=== PATIENT | female | born 1950 | race Caucasian/White ===

== ENCOUNTER 2018-04-09 06:57 | Day surgery (SDC) | payer OTHER, SELFPAY ==
[2018-04-09 07:29] VITALS: BP 115/76; PULSE 70; RESP 16; TEMP 36.4; O2SAT 100; BMI 19.1
[2018-04-09] MEDS: PROPARACAINE 0.5% OPHTH SOL 2 DROPS EYE-OP (07:38)
[2018-04-09] MEDS: CATARACT EYE COMPOUND (10 DROPS/SYRINGE) 3 DROPS EYE-OP (07:39)
--- NOTE | 2018-04-09 08:09 | PM.PREOP ---
Pre-operative Note Interval Note History & Physical reviewed/Exam performed by Physician: No Changes to H&P: No
--- NOTE | 2018-04-09 08:10 | PM.OP.1 ---
Operative Date/Time/Diagnoses Pre-op diagnosis: Nuclear cataract right eye Procedure & Clinicians Procedure: Cataract Surgery Same procedure as scheduled: Yes Surgeon: Tolu Hall Anesthesia Type: MAC +/- and Sedation Operative Notes Procedure in detail: Patient brought to the operating suite. Tetracaine drops placed in the right eye. Patient was prepped and draped in sterile manner. Wire lid speculum was placed in the eye. Betadine drops were placed on the eye. This was irrigated. Lidocaine jelly was placed on the eye. A paracentesis port was created with a side-port blade. 0.1 mL 1% preservative free lidocaine was injected into the anterior chamber. The anterior chamber was deepened with viscoelastic. 2.6 mm keratome was used to create a temporal clear corneal incision. Cystotome and Utrata forceps were used to create continuous tear capsulorrhexis. Balanced salt solution was used to hydro dissect the nucleus. The phacoemulsification handpiece was inserted and the nucleus was removed using the stop and chop technique. The irrigation aspiration handpiece was inserted and the remaining cortex was removed. Anterior chamber was deepened with viscoelastic. An Santillan ZCB00 intraocular lens with a power of 20.5 was injected into the capsular bag. Irrigation aspiration handpiece was inserted and the remaining viscoelastic was removed. Incision was hydrated with balanced salt solution and found to be leak free with pressure with Weck-Kylah sponges. 0.1 mL Vigamox injected anterior chamber. 0.3 mL Kenalog 10 mg was injected subconjunctivally. Lid speculum was removed. The patient left the operating room in excellent condition. Complications: none Condition: stable Disposition: same day surgery
[2018-04-09] MEDS: PHENYLEPHRINE/LIDOCAINE VIAL (OR) 0.2 ML EYE-OP (08:23)
[2018-04-09] MEDS: MOXIFLOXACIN OPHTH DROPS 3 ML BOTTLE 2 DROPS INJ (08:23)
[2018-04-09] MEDS: CHONDROIDTIN/SOD HYALURONATE 1.05 ML SYRINGE INTRAOCULA (08:24)
[2018-04-09] MEDS: TRIAMCINOLONE 50 MG/5 ML VIAL INJ (08:24)
[2018-04-09] MEDS: LIDOCAINE JELLY 2% 5 ML 1 APPLIC TOP (08:24)
[2018-04-09] MEDS: BALANCED SALT IRRIG SOLN NO.2 500 ML, EPINEPHrine 1 MG IRR (08:25)
[2018-04-09] MEDS: TETRACAINE 0.5% OPHTH DROPS 4 ML 2 DROPS EYE-OP (08:25)
[2018-04-09 08:40] VITALS: BP 119/70; PULSE 66; RESP 14; TEMP 36.2; O2SAT 97
== END 2018-04-09 08:46 ==
LOC: OR 06:58
PROVIDERS: PCP Internal Medicine; Visit Provider Ophthalmology
DX: H25.11 Age-related nuclear cataract, right eye (principal)
CPT/HCPCS: J0171; J2250; J3301

== ENCOUNTER → 2018-05-27 13:58 | Outpatient (CLI) | payer OTHER, SELFPAY ==
--- NOTE | 2018-05-27 | DI.MG.S_ITS ---
BILATERAL DIGITAL SCREENING MAMMOGRAM 3D/2D WITH CAD: 05/27/2018 CLINICAL: Routine screening. Family history of breast cancer. Comparison is made to exams dated: 05/15/2017 mammogram, 05/12/2016 mammogram, and 04/28/2015 mammogram - [facility]. The tissue of both breasts is heterogeneously dense. This may lower the sensitivity of mammography. Current study was also evaluated with a Computer Aided Detection (CAD) system. No significant masses, calcifications, or other findings are seen in either breast. There has been no significant interval change. IMPRESSION: NEGATIVE There is no mammographic evidence of malignancy. A 1 year screening mammogram is recommended. This exam was interpreted at Station ID: [id number]. NOTE: For mammograms, a report in lay terms will be sent to the patient. Approximately 15% of breast malignancies will not be visualized mammographically. In the management of a palpable breast mass, a negative mammogram must not discourage biopsy of a clinically suspicious lesion. Electronically Signed By: Nikki santos/lorene:05/27/2018 14:47:03 letter sent: Normal Exam ACR BI-RADS Category 1: Negative 3341F
== END ==
PROVIDERS: PCP Internal Medicine; Visit Provider Internal Medicine
DX: Z12.31 Encounter for screening mammogram for malignant neoplasm of breast (principal); Z80.3 Family history of malignant neoplasm of breast
CPT/HCPCS: 77063; 77067

== ENCOUNTER 2018-07-17 07:28 | Day surgery (SDC) | payer OTHER, SELFPAY ==
--- NOTE | 2018-07-17 | PATH_ITS ---
[facility] Accession Number: [id number] . 01 Material submitted: . cecum - CECAL POLYP BIOPSY . 02 Diagnosis: Cecum, Polyp, Biopsy: Tubular adenoma. V/07/18/2018 . 02 Electronically signed: . Ana Doan MD, Pathologist NPI- [id number] . 01 Gross description: . CECAL POLYP BIOPSY: Received in formalin is 1 fragment(s) of walter, soft tissue measuring 0.3 x 0.2 x 0.2 cm which is entirely submitted and submitted entirely in 1 cassette(s) /DMC /DMC . 02 Pathologist provided ICD-10: D12.0 . 02 CPT . 099515 Performed at: 01 [facility] [address] [id number] MD Rufino Gardiner MD Phone: [phone] Performed at: 02 [facility] [address] [place], [place] [id number] MD Ana Doan MD Phone: [phone]
[2018-07-17 07:56] VITALS: BP 121/77; PULSE 77; RESP 16; TEMP 36.4; O2SAT 100
[2018-07-17] MEDS: SODIUM CHLORIDE 0.9% 1,000 ML 42 ML IV (07:56)
--- NOTE | 2018-07-17 08:37 | PM.HP.1 ---
History of Present Illness Date Patient Seen: 07/17/18 Time Patient Seen: 08:37 Chief complaint: [id number] COLONOSCOPY Narrative: Personal history of colon polyps and family history of colon cancer in both her mother and father Patient History Medical History (Updated 07/17/18 @ 08:37 by Reece Hall MD) History of colon polyps (Acute) Hypercholesterolemia (Acute) Osteopenia (Acute) Social History household members: spouse Family & Social History Social History: household members spouse Meds Home Medications Medication Instructions Recorded Confirmed Type simvastatin 40 mg PO QPM 04/09/18 07/17/18 History calcium carbonate-vitamin D3 2 tab PO DAILY 07/17/18 07/17/18 History [Calcium 600 + D(3)] cholecalciferol (vitamin D3) 1,000 unit PO DAILY 07/17/18 07/17/18 History [Vitamin D3] magnesium hydroxide [Milk of 5 ml PO SEEINSTR PRN 07/17/18 07/17/18 History Magnesia] zoledronic [id number]-oexuz 07/17/18 History [Reclast] Allergies Allergy/AdvReac Type Severity Reaction Status Date / Time procaine [From NOVOCAIN] AdvReac Mild RACING Verified 07/17/18 07:49 HEART Exam Vital Signs (past 8 hours): - 07/17/18 07:56 Temperature 97.5 F L Pulse Rate 77 Respiratory Rate 16 Blood Pressure 121/77 Pulse Oximetry 100 Oxygen Delivery Method Room Air Narrative Exam Narrative: Oropharynx free of lesions Chest clear to auscultation percussion Cardiac exam reveals no S3 or murmur Assessment & Plan Assessment & Plan narrative: Family history of colon cancer and personal history of colon polyps need for follow-up colonoscopy. Risks, benefits, alternatives have been explained.
--- NOTE | 2018-07-17 09:04 | PM.OP.ENDO ---
Operative Date/Time/Diagnoses Date of procedure: 07/17/18 Time of procedure: 09:04 Pre-op diagnosis: See indication and findings Procedure & Clinicians Study performed: Colonoscopy Same procedure as scheduled: Yes Indications: Family history of colon cancer in both mother and father Surgeon: Reece Hall Procedure Notes Procedure in detail: After informed consent was obtained the patient was placed in left lateral decubitus position. The video colonoscope was introduced the rectum and slowly advanced to the cecum. On slow withdrawal mucosa was carefully examined. Scope was removed. The patient tolerated procedure well. Blood loss none Complications none Sedation Total sedation time 22 minutes Fentanyl 100 mg Versed 5 mg IV titration Findings 1. 3 mm cecal polyp at the appendiceal orifice Jumbo biopsy removed completely 2. Scattered horner colonic diverticulosis, mild 3. Otherwise negative colonoscopy to cecum We will be in touch regarding the biopsy results but she will need follow-up colonoscopy in 5 years.
[2018-07-17] MEDS: MIDAZOLAM 5 MG/5 ML VIAL IV (09:11)
[2018-07-17] MEDS: fentaNYL 250 MCG/5 ML INJ IV (09:11)
[2018-07-17 09:33] VITALS: BP 90/61; PULSE 68; RESP 13; TEMP 36.3; O2SAT 97
[2018-07-17 09:38] VITALS: BP 98/61; PULSE 75; RESP 15; O2SAT 97
[2018-07-17 09:43] VITALS: BP 103/67; PULSE 68; RESP 15; TEMP 36.4; O2SAT 95
[2018-07-17 09:48] VITALS: BP 105/66; PULSE 64; RESP 16; TEMP 36.4; O2SAT 96
[2018-07-17 09:58] VITALS: BP 103/68; PULSE 66; RESP 14; TEMP 36.4; O2SAT 100
== END 2018-07-17 10:03 ==
PROVIDERS: PCP Internal Medicine; Visit Provider Internal Medicine Gastroenterology
PROC: 0DJD8ZZ Inspection of Lower Intestinal Tract, Via Natural or Artificial Opening Endoscopic (ICD-10-PCS; CPT 45378; principal; 2018-07-17 09:00)
DX: Z86.010 Personal history of colon polyps (principal); Z80.0 Family history of malignant neoplasm of digestive organs; K57.30 Diverticulosis of large intestine without perforation or abscess without bleeding; D12.0 Benign neoplasm of cecum
CPT/HCPCS: 45380; J2250; J3010

== ENCOUNTER → 2018-11-27 14:50 | Outpatient (ROUT) | payer OTHER, SELFPAY ==
[2018-11-27 15:41] LABS: Aspartate Aminotransferase 26 IU/L (14-36); Cholesterol 241 mg/dL (140-199); Glucose 96 mg/dL (80-110); HDL Cholesterol 74 mg/dL (40-60); LDL Cholesterol Calculated 147 mg/dL (<100); Triglycerides 100 mg/dL (35-150)
== END ==
PROVIDERS: PCP Internal Medicine; Visit Provider Internal Medicine
DX: E78.2 Mixed hyperlipidemia (principal)
CPT/HCPCS: 80061; 82947; 84450

== ENCOUNTER → 2019-09-24 11:07 | Outpatient (CLI) | payer OTHER, SELFPAY ==
--- NOTE | 2019-09-24 | DI.MG.S_ITS ---
BILATERAL DIGITAL SCREENING MAMMOGRAM 3D/2D WITH CAD: 09/24/2019 CLINICAL: Routine screening. Family history of breast cancer. Comparison is made to exams dated: 05/27/2018 mammogram, 05/15/2017 mammogram, and 05/12/2016 mammogram - [facility]. The tissue of both breasts is heterogeneously dense. This may lower the sensitivity of mammography. Current study was also evaluated with a Computer Aided Detection (CAD) system. No significant masses, calcifications, or other findings are seen in either breast. There has been no significant interval change. IMPRESSION: NEGATIVE There is no mammographic evidence of malignancy. A 1 year screening mammogram is recommended. This exam was interpreted at Station ID: [id number]. NOTE: For mammograms, a report in lay terms will be sent to the patient. Approximately 15% of breast malignancies will not be visualized mammographically. In the management of a palpable breast mass, a negative mammogram must not discourage biopsy of a clinically suspicious lesion. Electronically Signed By: Nikki santos/lorene:09/24/2019 11:52:47 letter sent: Normal Exam ACR BI-RADS Category 1: Negative 3341F
== END ==
PROVIDERS: PCP Internal Medicine; Referring Provider Internal Medicine; Visit Provider Internal Medicine
DX: Z12.31 Encounter for screening mammogram for malignant neoplasm of breast (principal); Z80.3 Family history of malignant neoplasm of breast
CPT/HCPCS: 77063; 77067

== ENCOUNTER → 2019-11-12 13:59 | Outpatient (CLI) | payer OTHER, SELFPAY | PROVIDERS: PCP Internal Medicine; Referring Provider Dermatology MOHS-Micrographic Surgery; Visit Provider Family Medicine | DX: S81.802A Unspecified open wound, left lower leg, initial encounter (principal); R60.0 Localized edema | CPT/HCPCS: 11042; 93922; 99203; 99213 ==

== ENCOUNTER → 2019-11-14 12:31 | Outpatient (CLI) | payer OTHER, SELFPAY | PROVIDERS: PCP Internal Medicine; Referring Provider Internal Medicine; Visit Provider Family Medicine | DX: T81.31XA Disruption of external operation (surgical) wound, not elsewhere classified, initial encounter (principal); S81.802A Unspecified open wound, left lower leg, initial encounter | CPT/HCPCS: 29581 ==

== ENCOUNTER → 2019-11-19 11:56 | Outpatient (CLI) | payer OTHER, SELFPAY | PROVIDERS: PCP Internal Medicine; Referring Provider Internal Medicine; Visit Provider Family Medicine | DX: S81.802A Unspecified open wound, left lower leg, initial encounter (principal); R60.0 Localized edema; L08.9 Local infection of the skin and subcutaneous tissue, unspecified | CPT/HCPCS: 11042; 87070; 87075; 87077; 87147; 87186; 87205; 99214 ==

== ENCOUNTER → 2019-11-26 11:24 | Outpatient (CLI) | payer OTHER, SELFPAY | PROVIDERS: PCP Internal Medicine; Referring Provider Internal Medicine; Visit Provider Family Medicine | DX: T81.31XA Disruption of external operation (surgical) wound, not elsewhere classified, initial encounter (principal); S81.802A Unspecified open wound, left lower leg, initial encounter | CPT/HCPCS: 29581 ==

== ENCOUNTER → 2019-12-03 11:18 | Outpatient (CLI) | payer OTHER, SELFPAY | PROVIDERS: PCP Internal Medicine; Referring Provider Internal Medicine; Visit Provider Family Medicine | DX: S81.802A Unspecified open wound, left lower leg, initial encounter (principal); R60.0 Localized edema | CPT/HCPCS: 11042 ==

== ENCOUNTER → 2019-12-04 15:31 | Outpatient (ROUT) | payer OTHER, SELFPAY ==
[2019-12-04 16:14] LABS: Aspartate Aminotransferase 23 IU/L (14-36); BUN Creatinine Ratio 24.6 (6-22); Blood Urea Nitrogen 16 mg/dL (7-17); Calcium 9.5 mg/dL (8.4-10.2); Carbon Dioxide 30 mmol/L (22-32); Chloride 101 mmol/L (98-107); Cholesterol 264 mg/dL (140-199); Estimated Glomerular Filt Rate > 60.0 mL/min (>60); Glucose 114 mg/dL (80-110); HDL Cholesterol 61 mg/dL (40-60); HEMOLYSIS < 15 (0-50); LDL Cholesterol Calculated 168 mg/dL (<100); Potassium 4.5 mmol/L (3.4-5.1); Sodium 136 mmol/L (137-145); Triglycerides 177 mg/dL (35-150)
== END ==
PROVIDERS: PCP Internal Medicine; Visit Provider Internal Medicine
DX: M85.80 Other specified disorders of bone density and structure, unspecified site (principal); E78.2 Mixed hyperlipidemia
CPT/HCPCS: 80048; 80061; 84450

== ENCOUNTER → 2019-12-10 10:54 | Outpatient (CLI) | payer OTHER, SELFPAY | PROVIDERS: PCP Internal Medicine; Referring Provider Internal Medicine; Visit Provider Family Medicine | DX: S81.802A Unspecified open wound, left lower leg, initial encounter (principal); R60.0 Localized edema | CPT/HCPCS: 29581; 99212 ==

== ENCOUNTER → 2019-12-17 10:17 | Outpatient (CLI) | payer OTHER, SELFPAY | PROVIDERS: PCP Internal Medicine; Referring Provider Internal Medicine; Visit Provider Family Medicine | DX: S81.802A Unspecified open wound, left lower leg, initial encounter (principal); R60.0 Localized edema | CPT/HCPCS: 99213 ==

== ENCOUNTER → 2019-12-24 18:58 | Outpatient (ROUT) | payer OTHER, SELFPAY ==
[2019-12-24 19:05] LABS: Add Manual Diff / Slide Review NO; Basophils Absolute Auto 0 /uL (0-100); Basophils Percent Auto 0.4 % (0-2); Eosinophils Absolute Auto 0 /uL (0-450); Eosinophils Percent Auto 0.5 % (2-4); Hematocrit 42.7 % (36-46); Hemoglobin 14.5 g/dL (12.0-16.0); Lymphocytes Absolute Auto 1400 /uL (1100-4500); Lymphocytes Percent Auto 18.1 % (25-40); Mean Corpuscular HGB Conc 33.9 % (30-36); Mean Corpuscular Hemoglobin 33.2 PG (26-34); Mean Corpuscular Volume 98.1 fL (80-100); Monocytes Absolute Auto 500 /uL (0-900); Monocytes Percent Auto 6.6 % (3-14); Neutrophils Absolute Auto 5600 /uL (1500-7000); Neutrophils Percent Auto 74.4 % (50-75); Platelet Count 206 X10^3/uL (150-400); Red Blood Cell Count 4.35 X10^6/uL (4.0-5.2); Red Cell Distribution Width 12.7 % (11.6-14.8); White Blood Cell Count 7.6 X10^3/uL (4.5-11.0)
[2019-12-24 19:12] LABS: Alanine Aminotransferase 16 IU/L (<35); Albumin 4.6 g/dL (3.5-5.0); Albumin Globulin Ratio 1.5 (1.0-2.8); Alkaline Phosphatase 48 U/L (38-126); Aspartate Aminotransferase 28 IU/L (14-36); BUN Creatinine Ratio 26.7 (6-22); Bilirubin Total 0.6 mg/dL (0.2-1.3); Blood Urea Nitrogen 16 mg/dL (7-17); Calcium 9.7 mg/dL (8.4-10.2); Carbon Dioxide 26 mmol/L (22-32); Chloride 100 mmol/L (98-107); Estimated Glomerular Filt Rate > 60.0 mL/min (>60); Globulin 3.1 g/dL (1.7-4.1); Glucose 102 mg/dL (80-110); HEMOLYSIS 29 (0-50); Magnesium 2.3 mg/dL (1.6-2.3); Potassium 4.3 mmol/L (3.4-5.1); Sodium 136 mmol/L (137-145); Total Protein 7.7 g/dL (6.3-8.2)
[2019-12-24 19:40] LABS: TSH w/ Reflex to FT4 2.51 uIU/mL (0.47-4.68)
== END ==
PROVIDERS: PCP Internal Medicine; Visit Provider Physician Assistant
DX: E00.2 Congenital iodine-deficiency syndrome, mixed type (principal); R42 Dizziness and giddiness; R55 Syncope and collapse
CPT/HCPCS: 80053; 83735; 84443; 85025

== ENCOUNTER → 2020-03-09 07:56 | Outpatient (CLI) | payer OTHER, SELFPAY ==
--- NOTE | 2020-03-09 | DI.ECHO.S_ITS ---
[facility]---------+ [facility] +---------+ : : [address] : : : : [id number] : : : : Phone: [phone]+ Echocardiogram Report + + :Name: CARROL VÁSQUEZ Study Date: 03/09/2020 Height: 65 in : :[facility] ReadingLocation: Weight: 114 lb : : Gender: Female BSA: 1.6 m2 : :: 1950 Age: 69 yrs BP: 133/82 mmHg: :Reason For Study: ATRIAL FIBRILLATION : :Ordering Physician: ELIANA, : :KRISTINE Performed By: Elizabeth Mitchell : :Referring: KRISTINE MONROY : + + Interpretation Summary Left ventricular systolic function appears normal with an estimated ejection fraction of 60 to 65% without focal wall motion abnormality. The right ventricle appears normal. Right ventricular systolic pressure is estimated at 22 mmHg with a CVP likely around 3 mmHg. Both atria are normal in size. There is mild mitral and mild tricuspid regurgitation but no other significant valvular abnormality. The patient was in sinus rhythm at 72-81 bpm. Procedure: A two-dimensional transthoracic echocardiogram with color flow and Doppler was performed. The study quality was technically adequate. There is no prior echocardiogram noted for this patient. The patient was in sinus rhythm with heart rates between 72-81 bpm during the exam. Left Ventricle: The left ventricle is normal in size and wall thickness. The ejection fraction is estimated to be 60-65%. Diastolic parameters suggest probable normal left ventricular diastolic function and normal filling pressures. Right Ventricle: The right ventricle is normal in size and function. Atria: Both atria are normal in size. The interatrial septum grossly appears intact with no obvious evidence for an atrial septal defect. There is no Doppler evidence for an interatrial shunt. Mitral Valve: The mitral valve leaflets appear normal. There is no evidence of stenosis, fluttering, or prolapse. There is mild mitral regurgitation. Aortic Valve: The aortic valve is trileaflet. The aortic valve is slightly calcified. The aortic valve opens well. There is no aortic valve stenosis. No aortic regurgitation is present. Tricuspid Valve: The tricuspid valve is normal in structure and function. There is mild tricuspid regurgitation. The right ventricular systolic pressure is estimated to be at least 22 mmHg based on an estimated right atrial pressure of 3 mm Hg. Pulmonic Valve: The pulmonic valve leaflets are thin and pliable; valve motion is normal. There is no pulmonic valvular regurgitation. Great Vessels: The aortic root is normal size. The ascending aorta could not be visualized. The IVC is of normal diameter and collapses greater than 50% with a sniff. This suggests a low right atrial pressure of 3 mm Hg. Pericardium/ Pleura There is no pericardial effusion. There is no pleural effusion. MMode/2D Measurements & Calculations LVIDd: 4.1 cm LVOT diam: 2.0 cm LVIDs: 3.0 cm Ao root diam: 2.7 cm FS: 25.7 % Ao Arch Diam (Prox Trans): 2.5 cm EPSS: 0.81 cm IVSd: 0.77 cm LVPWd: 0.78 cm LV dean. diameter/BSA (cm/m^2): 2.6 LV sys. diameter/BSA (cm/m^2): 1.9 LA A2 area: 14.9 cm2 RA long axis: 4.2 cm LA A4 area: 11.0 cm2 RA area: 12.4 cm2 LA length (vol): 4.0 cm RA vol: 31.4 ml LA vol: 35.1 ml RA : 20.1 ml/m2 LA vol index: 22.6 ml/m2 IVC diam: 0.61 cm RVD1 (basal): 2.5 cm TAPSE: 1.8 cm Doppler Measurements & Calculations Ao V2 max: 119.0 cm/sec LVOT Max Francis: 78.6 cm/sec Ao V2 mean: 76.8 cm/sec LV V1 max P.5 mmHg Ao max P.7 mmHg LV V1 VTI: 16.3 cm Ao mean P.7 mmHg MARGARETTE(I,D): 2.0 cm2 Ao V2 VTI: 24.8 cm MARGARETTE(V,D): 2.0 cm2 sev ratio: 0.65 MARGARETTE indexed to BSA (cm^2/m^2): 1.3 MV E max francis: 71.9 cm/sec TR max francis: 220.3 cm/sec MV A max francis: 76.0 cm/sec TR max P.4 mmHg MV E/A: 0.95 PA V2 max: 50.6 cm/sec Med Peak E' Francis: 6.5 cm/sec PA V2 mean: 36.9 cm/sec E/E' med: 11.0 PA mean P.61 mmHg Lat Peak E' Francis: 8.7 cm/sec PA pr(Accel): 36.2 mmHg E/E' lat: 8.3 E/e' average: 9.7 MV dec time: 0.18 sec SV(ELIZABETH): 50.1 ml Reading Physician:11:47 AM
== END ==
PROVIDERS: PCP Internal Medicine; Referring Provider Internal Medicine; Visit Provider Physician Assistant
DX: I08.1 Rheumatic disorders of both mitral and tricuspid valves (principal); I48.0 Paroxysmal atrial fibrillation
CPT/HCPCS: 93306

== ENCOUNTER → 2020-10-02 10:30 | Outpatient (CLI) | payer OTHER, SELFPAY ==
--- NOTE | 2020-10-02 10:39 | DI.MG.S_ITS ---
BILATERAL DIGITAL SCREENING MAMMOGRAM 3D/2D WITH CAD: 10/02/2020 CLINICAL: Routine screening. Family history of breast cancer. Comparison is made to exams dated: 09/24/2019 mammogram, 05/27/2018 mammogram, and 05/15/2017 mammogram - [facility]. The tissue of both breasts is heterogeneously dense. This may lower the sensitivity of mammography. Current study was also evaluated with a Computer Aided Detection (CAD) system. No significant masses, calcifications, or other findings are seen in either breast. There has been no significant interval change. IMPRESSION: NEGATIVE There is no mammographic evidence of malignancy. A 1 year screening mammogram is recommended. This exam was interpreted at Station ID: [id number]. NOTE: For mammograms, a report in lay terms will be sent to the patient. Approximately 15% of breast malignancies will not be visualized mammographically. In the management of a palpable breast mass, a negative mammogram must not discourage biopsy of a clinically suspicious lesion. Electronically Signed By: Nayan Arevalo M.D., jr/lorene:10/04/2020 09:16:37 letter sent: Normal Exam ACR BI-RADS Category 1: Negative 3341F
== END ==
PROVIDERS: PCP Internal Medicine; Referring Provider Internal Medicine; Visit Provider Internal Medicine
DX: Z12.31 Encounter for screening mammogram for malignant neoplasm of breast (principal); Z80.3 Family history of malignant neoplasm of breast
CPT/HCPCS: 77063; 77067

== ENCOUNTER → 2020-12-10 12:36 | Outpatient (CLI) | payer OTHER, SELFPAY | PROVIDERS: PCP Internal Medicine; Referring Provider Internal Medicine; Visit Provider Internal Medicine | DX: Z13.820 Encounter for screening for osteoporosis; M85.852 Other specified disorders of bone density and structure, left thigh; Z78.0 Asymptomatic menopausal state; Z82.62 Family history of osteoporosis | CPT/HCPCS: 77080 ==

== ENCOUNTER → 2021-08-03 07:45 | Outpatient (CLI) | payer MEDICARE, SELFPAY ==
[2021-08-03 08:14] LABS: Hematocrit 39.9 % (36-46); Hemoglobin 13.7 g/dL (12.0-16.0); Mean Corpuscular HGB Conc 34.3 % (30-36); Mean Corpuscular Hemoglobin 32.6 PG (26-34); Mean Corpuscular Volume 95.1 fL (80-100); Platelet Count 192 X10^3/uL (150-400); Red Blood Cell Count 4.19 X10^6/uL (4.0-5.2); Red Cell Distribution Width 12.2 % (11.6-14.8)
[2021-08-03 08:39] LABS: Alanine Aminotransferase 16 IU/L (<35); Albumin 4.4 g/dL (3.5-5.0); Albumin Globulin Ratio 1.4 (1.0-2.8); Alkaline Phosphatase 43 U/L (38-126); Aspartate Aminotransferase 26 IU/L (14-36); BUN Creatinine Ratio 22.6 (6-22); Bilirubin Total 0.6 mg/dL (0.2-1.3); Blood Urea Nitrogen 14 mg/dL (7-17); Calcium 8.8 mg/dL (8.4-10.2); Carbon Dioxide 26 mmol/L (22-32); Chloride 103 mmol/L (98-107); Cholesterol 210 mg/dL (140-199); Estimated Glomerular Filt Rate > 60 mL/min (>60); Globulin 3.1 g/dL (1.7-4.1); Glucose 92 mg/dL (80-110); HDL Cholesterol 64 mg/dL (40-60); HEMOLYSIS < 15 (0-50); LDL Cholesterol Calculated 114 mg/dL (<100); Sodium 137 mmol/L (137-145); Total Protein 7.5 g/dL (6.3-8.2); Triglycerides 160 mg/dL (35-150)
[2021-08-03 08:52] LABS: Vitamin D 25 Hydroxy (D3) 45.4 ng/mL (30.0-100.0)
[2021-08-03 09:08] LABS: TSH w/ Reflex to FT4 3.79 uIU/mL (0.47-4.68)
== END ==
PROVIDERS: PCP Internal Medicine; Referring Provider Internal Medicine; Visit Provider Internal Medicine
DX: E78.2 Mixed hyperlipidemia (principal); M81.0 Age-related osteoporosis without current pathological fracture; I48.0 Paroxysmal atrial fibrillation
CPT/HCPCS: 36415; 80053; 80061; 82306; 84443; 85027

== ENCOUNTER → 2021-09-29 07:47 | Outpatient (CLI) | payer MEDICARE, SELFPAY ==
[2021-09-29 09:46] LABS: Alanine Aminotransferase 17 IU/L (<35); Albumin 4.2 g/dL (3.5-5.0); Albumin Globulin Ratio 1.5 (1.0-2.8); Alkaline Phosphatase 41 U/L (38-126); Aspartate Aminotransferase 22 IU/L (14-36); BUN Creatinine Ratio 26.7 (6-22); Bilirubin Total 0.5 mg/dL (0.2-1.3); Blood Urea Nitrogen 16 mg/dL (7-17); Carbon Dioxide 26 mmol/L (22-32); Chloride 104 mmol/L (98-107); Estimated Glomerular Filt Rate > 60 mL/min (>60); Globulin 2.8 g/dL (1.7-4.1); Glucose 97 mg/dL (80-110); HEMOLYSIS < 15 (0-50); Potassium 4.4 mmol/L (3.4-5.1); Sodium 138 mmol/L (137-145)
== END ==
PROVIDERS: PCP Internal Medicine; Referring Provider Internal Medicine; Visit Provider Internal Medicine
DX: M85.89 Other specified disorders of bone density and structure, multiple sites (principal)
CPT/HCPCS: 36415; 80053

== ENCOUNTER → 2021-10-20 10:55 | Outpatient (CLI) | payer MEDICARE, SELFPAY ==
--- NOTE | 2021-10-20 10:56 | DI.MG.S_ITS ---
BILATERAL DIGITAL SCREENING MAMMOGRAM 3D/2D WITH CAD: 10/20/2021 CLINICAL: Routine screening. Family history of breast cancer. Comparison is made to exams dated: 10/02/2020 mammogram, 09/24/2019 mammogram, and 05/27/2018 mammogram - [facility]. Both breasts are heterogeneously dense, which may obscure small masses (category c / 51-75% glandular tissue). Current study was also evaluated with a Computer Aided Detection (CAD) system. No significant masses, calcifications, or other findings are seen in either breast. There has been no significant interval change. IMPRESSION: NEGATIVE There is no mammographic evidence of malignancy. A 1 year screening mammogram is recommended. Based on the Tyrer Cuzick model (a risk assessment model) the patient's lifetime risk is 8.7% and her 10 year risk is 7.2%. According to the ACR, ACS, and NCCN guidelines, an annual breast MRI exam along with mammogram is recommended if the patient's lifetime risk is 20% or greater. This exam was interpreted at Station ID: [id number]. NOTE: For mammograms, a report in lay terms will be sent to the patient. Approximately 15% of breast malignancies will not be visualized mammographically. In the management of a palpable breast mass, a negative mammogram must not discourage biopsy of a clinically suspicious lesion. Electronically Signed By: Mainor tamayo/lorene:10/20/2021 16:49:01 letter sent: Normal Exam ACR BI-RADS Category 1: Negative 3341F
== END ==
PROVIDERS: PCP Internal Medicine; Referring Provider Internal Medicine; Visit Provider Internal Medicine
DX: Z12.31 Encounter for screening mammogram for malignant neoplasm of breast (principal); Z80.3 Family history of malignant neoplasm of breast
CPT/HCPCS: 77063; 77067

== ENCOUNTER → 2022-10-23 15:13 | Outpatient (CLI) | payer MEDICARE, SELFPAY ==
--- NOTE | 2022-10-23 15:14 | DI.MG.S_ITS ---
BILATERAL DIGITAL SCREENING MAMMOGRAM 3D/2D WITH CAD: 10/23/2022 CLINICAL: Routine screening. Family history of breast cancer. Comparison is made to exams dated: 10/20/2021 mammogram, 10/02/2020 mammogram, and 09/24/2019 mammogram - [facility]. Both breasts are heterogeneously dense, which may obscure small masses (category c / 51-75% glandular tissue). Current study was also evaluated with a Computer Aided Detection (CAD) system. No significant masses, calcifications, or other findings are seen in either breast. There has been no significant interval change. IMPRESSION: NEGATIVE There is no mammographic evidence of malignancy. A 1 year screening mammogram is recommended. Based on the Tyrer Cuzick model (a risk assessment model) the patient's lifetime risk is 8.2% and her 10 year risk is 7.4%. According to the ACR, ACS, and NCCN guidelines, an annual breast MRI exam along with mammogram is recommended if the patient's lifetime risk is 20% or greater. This exam was interpreted at Station ID: [id number]. NOTE: For mammograms, a report in lay terms will be sent to the patient. Approximately 15% of breast malignancies will not be visualized mammographically. In the management of a palpable breast mass, a negative mammogram must not discourage biopsy of a clinically suspicious lesion. Electronically Signed By: Nikki santos/lorene:10/24/2022 09:28:53 letter sent: Normal Exam ACR BI-RADS Category 1: Negative 3341F
== END ==
PROVIDERS: PCP Internal Medicine; Referring Provider Internal Medicine; Visit Provider Internal Medicine
DX: Z12.31 Encounter for screening mammogram for malignant neoplasm of breast (principal); Z80.3 Family history of malignant neoplasm of breast
CPT/HCPCS: 77063; 77067

== ENCOUNTER → 2022-11-06 10:08 | Outpatient (CLI) | payer MEDICARE, SELFPAY ==
--- NOTE | 2022-11-06 10:09 | DI.RAD.S_ITS ---
Bone Density Report Name: CARROL VÁSQUEZ Age: 72 Sex: Female Ethnicity: White Date of : 1950 Indication: osteopenia; Referring Provider: KIRSTIN PADILLA Study: Bone densitometry was performed. Exam Date: November 06, 2022 Accession number: [id number] Bone Density: Region BMD T-score Z-score Classification AP Spine(L1-L4) 0.814 -2.1 0.2 Osteopenia Femoral Neck (Left) 0.622 -2.0 0.0 Osteopenia Total Hip (Left) 0.726 -1.8 0.0 Osteopenia Femoral Neck (Right) 0.624 -2.0 0.0 Osteopenia Total Hip (Right) 0.732 -1.7 0.0 Osteopenia Total Hip Mean 0.729 -1.8 0.0 Osteopenia World Health Organization criteria for BMD impression classify patients as: Normal (T-score at or above -1.0), Osteopenia (T-score between -1.0 and -2.5), or Osteoporosis (T-score at or below -2.5). 10-year Fracture Risk(1): Major Osteoporotic Fracture 11% Hip Fracture 2.9% Reported Risk Factors: [place] (), Neck BMD=0.622, BMI=19.0 (1) FRAX(R) Version 3.08. Fracture probability calculated for an untreated patient. Fracture probability may be lower if the patient has received treatment. Previous Exams: -- Region Exam Age BMD T-score BMD Change BMD Change Date g/cm2 vs Baseline vs Previous -- AP Spine (L1-L4) 11/06/2022 72 0.814 -2.1 -0.022 (-2.7%)# -0.022 (-2.7%)# 12/10/2020 70 0.836 -1.9 Total Hip(Left) 11/06/2022 72 0.726 -1.8 0.061 (9.2%)# 0.061 (9.2%)# 12/10/2020 70 0.665 -2.3 Total Hip(Right) 11/06/2022 72 0.732 -1.7 0.034 (4.8%)# 0.034 (4.8%)# 12/10/2020 70 0.698 -2.0 -- *Denotes significance at 95% confidence level, LSC for AP Spine = 0.022 g/cm2, LSC for Total Hip = 0.027 g/cm2 # Denotes dissimilar scan types or analysis methods Impression: The patient has low bone mass, based on the Total Spine T-score. The patient has an estimated ten-year risk of hip fracture of 2.9% and an estimated ten-year risk of major fracture of 11%, based on the WHO FRAX algorithm. No significant bone loss was observed. Discussion: BONE DENSITY IS LOW AT ONE OR MORE SKELETAL SITES. This patient's lowest T-score is low at one or more skeletal sites. It meets the World Health Organization's (WHO) criteria for low bone mass (T-score between -1.0 and -2.5). The patient's 10-year risk of fracture as calculated by FRAX is less than the threshold where pharmacological therapy is recommended by the National Osteoporosis Foundation (NOF). However, all treatment decisions require clinical judgment and consideration of individual patient factors, including patient preferences, comorbidities, previous drug use, risk factors not captured in the FRAX model (e.g., frailty, falls, vitamin D deficiency, increased bone turnover, interval significant decline in bone density) and possible under or overestimation of fracture risk by FRAX. The patient should follow a healthful lifestyle (good nutrition with adequate calcium and vitamin D, and appropriate weight-bearing exercise). Follow-Up: Consider repeating this study in 2 to 3 years to reassess this patient's status, or sooner if there is some new clinical indication. Reported by: SEB LOVE M.D. on 11/06/2022 10:24:00 AM.
== END ==
PROVIDERS: PCP Internal Medicine; Referring Provider Internal Medicine; Visit Provider Internal Medicine
DX: Z78.0 Asymptomatic menopausal state (principal); M85.89 Other specified disorders of bone density and structure, multiple sites
CPT/HCPCS: 77080

== ENCOUNTER → 2023-02-14 10:33 | Outpatient (CLI) | payer MEDICARE, SELFPAY ==
[2023-02-14 11:02] LABS: Hemoglobin 13.5 g/dL (12.0-16.0); Mean Corpuscular HGB Conc 34.6 % (30-36); Mean Corpuscular Hemoglobin 33.2 PG (26-34); Mean Corpuscular Volume 96.1 fL (80-100); Platelet Count 209 X10^3/uL (150-400); Red Blood Cell Count 4.06 X10^6/uL (4.0-5.2); Red Cell Distribution Width 12.7 % (11.6-14.8); White Blood Cell Count 5.5 X10^3/uL (4.5-11.0)
[2023-02-14 11:21] LABS: Alanine Aminotransferase 20 IU/L (<35); Albumin 4.6 g/dL (3.5-5.0); Albumin Globulin Ratio 1.4 (1.0-2.8); Alkaline Phosphatase 42 U/L (38-126); Aspartate Aminotransferase 28 IU/L (14-36); BUN Creatinine Ratio 25.5 (6-22); Bilirubin Total 0.6 mg/dL (0.2-1.3); Blood Urea Nitrogen 14 mg/dL (7-17); Calcium 9.9 mg/dL (8.4-10.2); Carbon Dioxide 27 mmol/L (22-32); Chloride 100 mmol/L (98-107); Cholesterol 213 mg/dL (140-199); Estimated Glomerular Filt Rate > 60 mL/min (>60); Globulin 3.4 g/dL (1.7-4.1); Glucose 96 mg/dL (80-110); HDL Cholesterol 66 mg/dL (40-60); HEMOLYSIS < 15 (0-50); LDL Cholesterol Calculated 126 mg/dL (<100); Potassium 4.3 mmol/L (3.4-5.1); Sodium 134 mmol/L (137-145); Triglycerides 107 mg/dL (35-150)
== END ==
PROVIDERS: PCP Internal Medicine; Referring Provider Internal Medicine; Visit Provider Internal Medicine
DX: E78.2 Mixed hyperlipidemia (principal); I48.0 Paroxysmal atrial fibrillation
CPT/HCPCS: 36415; 80053; 80061; 85027

== ENCOUNTER 2023-06-28 18:33 | Emergency (ER) | payer MEDICARE, SELFPAY ==
[2023-06-28] VITALS (8 sets, daily range): BP systolic 137–166; BP diastolic 74–103; PULSE 72–84; RESP 13–23; TEMP 36.7; O2SAT 96–100; BMI 18.3
--- NOTE | 2023-06-28 19:20 | DI.CT.S_ITS ---
PROCEDURE: CT ANGIO HEAD AND NECK INDICATIONS: Visual changes, concern for TIA TECHNIQUE: After the administration of intravenous contrast, 1 mm thick sections acquired from the aortic arch through the [place]. 3-dimensional ubjxirv-hljdijgju-xmvhmlytzu (MIP) and/or volume rendering reformats were acquired of the central intracranial vasculature and neck separately. For radiation dose reduction, the following was used: automated exposure control, adjustment of mA and/or kV according to patient size. COMPARISON: None. FINDINGS: Image quality: Diagnostic. BRAIN: CSF spaces: Ventricles are normal in size and shape. Basal cisterns are patent. No extra-axial fluid collections. Brain: No significant abnormality of the brain can be seen. Skull and face: Calvarium and facial bones appear intact, without suspicious lesions. Orbits appear normal. Sinuses: Sinuses and mastoids are clear. HEAD CT ANGIOGRAPHY: Anterior circulation: Intracranial internal carotid arteries are normal in size and flow. The flow within the paired anterior cerebral arteries is normal and symmetric. The flow within the middle cerebral arteries is normal and symmetric. The anterior communicating artery is seen. No aneurysms are seen. Posterior circulation: Visualized portions of the vertebral arteries demonstrate normal caliber, and join to form a normal appearing basilar artery. Flow within the posterior cerebral arteries is normal and symmetric. No aneurysms are seen. NECK CT ANGIOGRAPHY: Carotid system: The great vessels demonstrate a conventional anatomy as they arise from the aortic arch. The origins of the common carotid arteries appear patent. There is moderate calcification at the left subclavian artery origin. The common carotid arteries demonstrate normal caliber and courses. The bifurcation regions are both widely patent. The internal carotid arteries demonstrate normal calibers and courses. Posterior circulation: The origins of the vertebral arteries both appear widely patent. The more superior extracranial portions of both vertebral arteries also demonstrate normal courses and calibers. They join to form a normal appearing basilar artery. Soft tissues: Visualized neck soft tissues demonstrate no suspicious abnormalities. Bones: No suspicious bony lesions. Visualized cervical spine demonstrates moderate degenerative disc change at C5-6 and C6-7. IMPRESSION: No significant intracranial arterial abnormality is seen. No significant abnormality is seen within the arteries of the neck. Any quantitative measurements of stenosis were performed using NASCET criteria. Dictated by: Khloe Green M.D. on 06/28/2023 at 21:37 Approved by: Khloe Green M.D. on 06/28/2023 at 21:42
--- NOTE | 2023-06-28 19:20 | DI.CT.S_ITS ---
PROCEDURE: CT HEAD/BRAIN WO CON INDICATIONS: Visual changes, concern for TIA TECHNIQUE: Noncontrast 4.5 mm thick angled axial sections acquired from the foramen magnum to the vertex, with coronal and sagittal reformats. For radiation dose reduction, the following was used: automated exposure control, adjustment of mA and/or kV according to patient size. COMPARISON: None. FINDINGS: Image quality: Diagnostic. CSF spaces: Basal cisterns are patent. No extra-axial fluid collections. The ventricles are symmetric in size and shape. Brain: No intracranial bleeds or masses. There is cerebral volume loss for age, with resultant ventricular and sulcal prominence. There are periventricular and deep white matter chronic small vessel ischemic changes. Benign bilateral basal ganglia calcification. There is intracranial internal carotid artery atherosclerosis. Skull and face: Calvarium and visualized facial bones appear intact, without suspicious lesions. Sinuses: Visualized sinuses and mastoids are clear. IMPRESSION: No acute intracranial pathology. Age-appropriate brain volume. Dictated by: Khloe Green M.D. on 06/28/2023 at 20:40 Approved by: Khloe Green M.D. on 06/28/2023 at 20:42
--- NOTE | 2023-06-28 19:35 | PC.NURSE ---
Patient has bilat dilated pupils, she was at [facility] [employer] and had her pupils dilated for exam.
[2023-06-28 20:11] LABS: Add Manual Diff / Slide Review NO; Basophils Absolute Auto 100 /uL (0-100); Basophils Percent Auto 0.7 % (0-2); Eosinophils Absolute Auto 100 /uL (0-450); Eosinophils Percent Auto 1.8 % (2-4); Hematocrit 39.8 % (36-46); Hemoglobin 13.5 g/dL (12.0-16.0); Lymphocytes Absolute Auto 2000 /uL (1100-4500); Mean Corpuscular HGB Conc 33.9 % (30-36); Mean Corpuscular Hemoglobin 32.6 PG (26-34); Mean Corpuscular Volume 96.2 fL (80-100); Monocytes Absolute Auto 600 /uL (0-900); Monocytes Percent Auto 8.9 % (3-14); Neutrophils Absolute Auto 4300 /uL (1500-7000); Neutrophils Percent Auto 60.6 % (50-75); Platelet Count 213 X10^3/uL (150-400); Red Blood Cell Count 4.14 X10^6/uL (4.0-5.2); White Blood Cell Count 7.1 X10^3/uL (4.5-11.0)
[2023-06-28 20:14] LABS: INR 1.1 (0.9-1.3); Prothrombin Time 12.8 SECONDS (9.4-12.5)
[2023-06-28 20:17] LABS: PTT Partial Thromboplastin Tim 39 SECONDS (25.1-36.5)
[2023-06-28 20:21] LABS: Alanine Aminotransferase 17 IU/L (<35); Albumin 4.8 g/dL (3.5-5.0); Albumin Globulin Ratio 1.6 (1.0-2.8); Alkaline Phosphatase 44 U/L (38-126); Aspartate Aminotransferase 26 IU/L (14-36); BUN Creatinine Ratio 28.1 (6-22); Bilirubin Total 0.6 mg/dL (0.2-1.3); Blood Urea Nitrogen 18 mg/dL (7-17); Calcium 9.2 mg/dL (8.4-10.2); Carbon Dioxide 25 mmol/L (22-32); Chloride 103 mmol/L (98-107); Estimated Glomerular Filt Rate > 60 mL/min (>60); Glucose 105 mg/dL (80-110); HEMOLYSIS < 15 (0-50); Lipase 121 U/L (23-300); Potassium 3.8 mmol/L (3.4-5.1); Sodium 137 mmol/L (137-145); Total Protein 7.8 g/dL (6.3-8.2)
--- NOTE | 2023-06-28 20:29 | ED_ITS ---
HPI - Neuro Symptoms/Deficit General Chief Complaint: Neuro Symptoms/Deficit Stated Complaint: RO Eye stroke per Olga Ryan MD Time Seen by Provider: 06/28/23 19:18 Source: patient Mode of arrival: Ambulatory History of Present Illness HPI Narrative: Patient is a 72-year-old female who was sent from the ophthalmology clinic for evaluation of potential CVA/TIA. Earlier today the patient stated that she had a period of time where the vision in her right visual field became somewhat blurry and she also had ?squiggly lines? in the area. She states it lasted approximately 15 minutes and then completely resolved. She stated that a couple hours later the same thing happened again. Once again lasting 15 minutes or so and then completely resolved. Since that time she has been asymptomatic. Stated that she was going to come to get evaluated but then she started reading online about potential etiologies so she contacted her eye doctor's office. She was seen by the eye doctor. She stated that the eye doctor told her everything looked okay with her eyes but she should come to the emergency department for evaluation. She was on anticoagulation for atrial fibrillation. Has never had a heart attack. Has never had a stroke. During the time of the event she did not have chest pain, palpitations, shortness of breath, numbness or tingling in upper and lower extremities, or problems speaking. She stated that she did have a slight headache during the time but that has now resolved. On Anticoagulants: No Related Data Home Medications Medication Instructions Recorded Confirmed cholecalciferol (vitamin D3) 25 1,000 unit PO DAILY 07/17/18 02/14/23 mcg (1,000 unit) capsule (Vitamin D3) zoledronic acid 5 mg/100 mL in 07/17/18 02/14/23 mannitol 5 %-water intravenous piggybck (Reclast) tretinoin 0.025 % topical cream 1 applic topical BEDTIME 05/25/21 02/14/23 metoprolol tartrate 25 mg tablet 25 mg PO BID 02/14/23 02/14/23 Previous Rx's Medication Instructions Recorded apixaban 5 mg tablet (Eliquis) 5 mg PO BID #180 tabs 04/11/23 rosuvastatin 10 mg tablet 10 mg PO DAILY #90 tabs 04/11/23 Allergies Allergy/AdvReac Type Severity Reaction Status Date / Time No Known Drug Allergies Allergy Verified 02/14/23 09:23 Review of Systems Review of Systems ROS Unobtainable: All systems reviewed & are unremarkable except as noted in HPI and below Hematologic/Lymphatic On Anticoagulants: No Patient History Medical History Family history of colon cancer History of melanoma Slow transit constipation Strain of left supraspinatus muscle or tendon History of colon polyps Osteopenia Chronic anticoagulation Mixed hyperlipidemia Paroxysmal atrial fibrillation Hypercholesterolemia Osteopenia History of colon polyps Social History household members: spouse Smoking Status: Never smoker Smoking Status: Never smoker alcohol intake frequency: 0-2 drinks per day Alcohol type: wine Exam Initial Vital Signs Initial Vital Signs: Vital Signs Temperature 98.1 F 06/28/23 18:51 Pulse Rate 80 06/28/23 18:51 Respiratory Rate 16 06/28/23 18:51 Blood Pressure 166/91 H 06/28/23 18:51 Pulse Oximetry 99 06/28/23 18:51 Oxygen Delivery Method Room Air 06/28/23 18:51 Const General: cooperative, comfortable and No ill appearing HENMT Head: normal to inspection and normocephalic Resp Effort & Inspection: normal respiratory effort Auscultation: clear to auscultation bilaterally Cardio Rate: regular rate Rhythm: regular rhythm GI Inspection: normal to inspection Skin General: no rashes or lesions noted Neuro General: patient alert, patient awake, patient oriented x3 and moves all extremities Cranial Nerves: CN's II-XI intact bilaterally Cognition: normal cognition Speech: speech normal Gait: normal gait Extrem General: capillary refill normal Scores ABCD2 Age >= 60 years: yes Initial BP. Either SBP >= 140 or DBP >= 90.: yes Clinical features of the TIA: other symptoms Duration of symptoms: 10-59 minutes History of diabetes: no ABCD2 Score: 3 Course Orders Ordered: ED Orders 06/28/23 19:20 CT angio head and neck Stat CT head/brain wo con Stat EKG-12 Lead Stat 06/28/23 19:37 Complete Blood Count AUTO DIFF Stat Comprehensive Metabolic Panel Stat Lipase Stat PTT Partial Thromboplastin Nomi Stat Prothrombin Time INR Stat Vital Signs Vital signs: Vital Signs - 8 hr 06/28/23 18:51 06/28/23 19:37 06/28/23 20:00 Temperature 98.1 F Pulse Rate 80 72 Respiratory Rate 16 13 Blood Pressure 166/91 H 140/87 Pulse Oximetry 99 100 Oxygen Delivery Method Room Air Room Air 06/28/23 20:00 06/28/23 20:44 06/28/23 20:45 Temperature Pulse Rate 72 84 Respiratory Rate 23 Blood Pressure 152/103 H Pulse Oximetry 98 98 Oxygen Delivery Method Room Air Room Air 06/28/23 20:45 06/28/23 21:00 06/28/23 21:00 Temperature Pulse Rate 80 77 Respiratory Rate 14 18 Blood Pressure 146/86 H Pulse Oximetry 96 100 Oxygen Delivery Method Room Air Room Air 06/28/23 21:30 06/28/23 21:30 06/28/23 22:00 Temperature Pulse Rate 75 Respiratory Rate 14 Blood Pressure 141/74 H 137/74 Pulse Oximetry 97 Oxygen Delivery Method Room Air 06/28/23 22:00 Temperature Pulse Rate 75 Respiratory Rate 17 Blood Pressure Pulse Oximetry 97 Oxygen Delivery Method Room Air MDM - Neuro Symptoms/Deficit Lab Data Attestation: I reviewed the patient's lab results. 06/28/23 19:37 06/28/23 19:37 Labs: Lab Results 06/28/23 Range/Units 19:37 WBC 7.1 (4.5-11.0) X10^3/uL RBC 4.14 (4.0-5.2) X10^6/uL Hgb 13.5 (12.0-16.0) g/dL Hct 39.8 (36-46) % MCV 96.2 (80-100) fL MCH 32.6 (26-34) PG MCHC 33.9 (30-36) % RDW 13.0 (11.6-14.8) % Plt Count 213 (150-400) X10^3/uL Neut % (Auto) 60.6 (50-75) % Lymph % (Auto) 28.0 (25-40) % [place] % (Auto) 8.9 (3-14) % Eos % (Auto) 1.8 L (2-4) % Baso % (Auto) 0.7 (0-2) % Neut # (Auto) 4300 (7596-5413) /uL Lymph # (Auto) 2000 (4299-5507) /uL [place] # (Auto) 600 (0-900) /uL Eos # (Auto) 100 (0-450) /uL Baso # (Auto) 100 (0-100) /uL PT 12.8 H (9.4-12.5) SECONDS INR 1.1 (0.9-1.3) APTT 39 H (25.1-36.5) SECONDS Sodium 137 (137-145) mmol/L Potassium 3.8 (3.4-5.1) mmol/L Chloride 103 (98-107) mmol/L Carbon Dioxide 25 (22-32) mmol/L BUN 18 H (7-17) mg/dL Creatinine 0.64 (0.52-1.04) mg/dL Estimated GFR > 60 (>60) mL/min BUN/Creatinine Ratio 28.1 H (6-22) Glucose 105 (80-110) mg/dL Calcium 9.2 (8.4-10.2) mg/dL Total Bilirubin 0.6 (0.2-1.3) mg/dL AST 26 (14-36) IU/L ALT 17 (<35) IU/L Alkaline Phosphatase 44 (38-126) U/L Total Protein 7.8 (6.3-8.2) g/dL Albumin 4.8 (3.5-5.0) g/dL Globulin 3.0 (1.7-4.1) g/dL Albumin/Globulin Ratio 1.6 (1.0-2.8) Lipase 121 (23-300) U/L Imaging Data CT scan - head: Radiologist's Impression: PROCEDURE: CT HEAD/BRAIN WO CON INDICATIONS: Visual changes, concern for TIA TECHNIQUE: Noncontrast 4.5 mm thick angled axial sections acquired from the foramen magnum to the vertex, with coronal and sagittal reformats. For radiation dose reduction, the following was used: automated exposure control, adjustment of mA and/or kV according to patient size. COMPARISON: None. FINDINGS: Image quality: Diagnostic. CSF spaces: Basal cisterns are patent. No extra-axial fluid collections. The ventricles are symmetric in size and shape. Brain: No intracranial bleeds or masses. There is cerebral volume loss for age, with resultant ventricular and sulcal prominence. There are periventricular and deep white matter chronic small vessel ischemic changes. Benign bilateral basal ganglia calcification. There is intracranial internal carotid artery atherosclerosis. Skull and face: Calvarium and visualized facial bones appear intact, without suspicious lesions. Sinuses: Visualized sinuses and mastoids are clear. IMPRESSION: No acute intracranial pathology. Age-appropriate brain volume. CTA - brain/neck: Radiologist's Impression: PROCEDURE: CT ANGIO HEAD AND NECK INDICATIONS: Visual changes, concern for TIA TECHNIQUE: After the administration of intravenous contrast, 1 mm thick sections acquired from the aortic arch through the [place]. 3-dimensional ozdrdyl-rzxnikwou-wzchfljqnr (MIP) and/or volume rendering reformats were acquired of the central intracranial vasculature and neck separately. For radiation dose reduction, the following was used: automated exposure control, adjustment of mA and/or kV according to patient size. COMPARISON: None. FINDINGS: Image quality: Diagnostic. BRAIN: CSF spaces: Ventricles are normal in size and shape. Basal cisterns are patent. No extra-axial fluid collections. Brain: No significant abnormality of the brain can be seen. Skull and face: Calvarium and facial bones appear intact, without suspicious lesions. Orbits appear normal. Sinuses: Sinuses and mastoids are clear. HEAD CT ANGIOGRAPHY: Anterior circulation: Intracranial internal carotid arteries are normal in size and flow. The flow within the paired anterior cerebral arteries is normal and symmetric. The flow within the middle cerebral arteries is normal and symmetric. The anterior communicating artery is seen. No aneurysms are seen. Posterior circulation: Visualized portions of the vertebral arteries demonstrate normal caliber, and join to form a normal appearing basilar artery. Flow within the posterior cerebral arteries is normal and symmetric. No aneurysms are seen. NECK CT ANGIOGRAPHY: Carotid system: The great vessels demonstrate a conventional anatomy as they arise from the aortic arch. The origins of the common carotid arteries appear patent. There is moderate calcification at the left subclavian artery origin. The common carotid arteries demonstrate normal caliber and courses. The bifurcation regions are both widely patent. The internal carotid arteries demonstrate normal calibers and courses. Posterior circulation: The origins of the vertebral arteries both appear widely patent. The more superior extracranial portions of both vertebral arteries also demonstrate normal courses and calibers. They join to form a normal appearing basilar artery. Soft tissues: Visualized neck soft tissues demonstrate no suspicious abnormalities. Bones: No suspicious bony lesions. Visualized cervical spine demonstrates moderate degenerative disc change at C5-6 and C6-7. IMPRESSION: No significant intracranial arterial abnormality is seen. No significant abnormality is seen within the arteries of the neck. Any quantitative measurements of stenosis were performed using NASCET criteria. ECG Data Attestation: I personally reviewed and interpreted this ECG as follows: Interpretation: Sinus rhythm Ventricular rate is 71 Normal axis Normal QRS Normal QTC No ST T wave changes MDM Narrative Medical decision making narrative: Patient has been asymptomatic since early this morning. She has a ABCD2 score of 3 which puts her at low risk. She was already on anticoagulation. She had an echocardiogram a couple years ago which she thinks was unremarkable. Her CT scan and CTA of the head and neck are unremarkable. Low suspicion for CVA. She was already seen Ophthalmology. We did discuss the possibilities of a TIA. Will have her contact her primary doctor for a follow-up. Will not make any changes to her medications currently. We discussed return precautions and follow-up instructions. She expressed understanding and agreement. Discharge Plan Departure Patient Disposition: Home Clinical Impression: Transient vision disturbance Instructions: DI for Transient Ischemic Attack Activity Restrictions/Additional Instructions: Continue to take all of your medications as directed. Recommend that you contact your primary care doctor for a follow-up. Return to the emergency department for new or worsening symptoms. Prescriptions: No Action Eliquis 5 mg tablet 5 mg PO BID Qty: 180 3RF rosuvastatin 10 mg tablet 10 mg PO DAILY Qty: 90 3RF metoprolol tartrate 25 mg tablet 25 mg PO BID tretinoin 0.025 % cream 1 applic topical BEDTIME Patient Comments: APPLY A PEA SIZED AMOUNT NIGHTLY AT BEDTIME cholecalciferol (vitamin D3) [Vitamin D3] 1,000 unit Capsule 1,000 unit PO DAILY zoledronic [id number]-[id number] [Reclast] 5 mg/100 mL Piggyback Patient Comments: Approximate date of infusion Referrals: Armen Watkins MD [Primary Care Provider] - Stand Alone Forms: Patient Portal/API
== END 2023-06-28 22:28 | disposition home or self-care (01) ==
PROVIDERS: Emergency Provider Emergency Medicine; PCP Internal Medicine
DX: H53.8 Other visual disturbances (principal); R51.9 Headache, unspecified; R03.0 Elevated blood-pressure reading, without diagnosis of hypertension
CPT/HCPCS: 36415; 70450; 70496; 70498; 80053; 83690; 85025; 85610; 85730; 93005; 99283; 99284; Q9967

== ENCOUNTER 2023-09-17 07:56 | Day surgery (SDC) | payer MEDICARE, SELFPAY ==
[2023-09-17 08:24] VITALS: BP 119/79; PULSE 74; RESP 16; TEMP 36.5; O2SAT 98
--- NOTE | 2023-09-17 08:29 | PM.HP.1 ---
History of Present Illness History of Present Illness Date Patient Seen: 09/17/23 Chief complaint: Colonoscopy w/poss bx Narrative: Personal history of colon polyps and family history of colon cancer in both mother and father [facility] Medical History (Updated 07/13/23 @ 00:01 by ) Migraine with aura and without status migrainosus Family history of colon cancer History of melanoma Slow transit constipation Strain of left supraspinatus muscle or tendon History of colon polyps Osteopenia Chronic anticoagulation Mixed hyperlipidemia Paroxysmal atrial fibrillation Hypercholesterolemia Osteopenia History of colon polyps Social History household members: spouse Smoking Status: Never smoker Meds Home Medications and Allergies Home Medications Medication Instructions Recorded Confirmed Type cholecalciferol (vitamin D3) 25 1,000 unit PO DAILY 07/17/18 09/17/23 History mcg (1,000 unit) capsule (Vitamin D3) zoledronic acid 5 mg/100 mL in See Protocol 07/17/18 07/04/23 History mannitol 5 %-water intravenous piggybck (Reclast) tretinoin 0.025 % topical cream 1 applic topical BEDTIME 05/25/21 09/17/23 History apixaban 5 mg tablet (Eliquis) 5 mg PO BID #180 tabs 04/11/23 09/17/23 Rx rosuvastatin 10 mg tablet 10 mg PO DAILY #90 tabs 04/11/23 09/17/23 Rx Allergies Allergy/AdvReac Type Severity Reaction Status Date / Time No Known Drug Allergies Allergy Verified 09/17/23 08:14 Exam Narrative Exam Narrative: Oropharynx free of lesions Chest clear to auscultation percussion Cardiac exam reveals no S3 or murmur Assessment & Plan Assessment & Plan narrative: Personal history of colon polyps and family history of colon cancer need for follow-up colonoscopy. Risks, benefits, alternatives have been explained. Time-Based Coding :: [TOTAL MINUTES] spent with patient and on the chart (including review of chart, obtaining history, exam, reviewing outside data, placing orders, documenting exam and treatment plan, and counseling patient) on [DATE].
--- NOTE | 2023-09-17 08:30 | PM.OP.COLON ---
Operative Date/Time/Diagnoses Date of procedure: 09/17/23 Pre-op diagnosis: See indication and findings Procedure & Clinicians Study performed: Colonoscopy Indications: Personal history of colon polyps and family history of colon cancer. Last Eliquis 2 days ago Surgeon: Reece Hall Procedure Notes Procedure in detail: After informed consent was obtained the patient was placed in left lateral decubitus position. The video colonoscopy was placed in the rectum slowly advanced at the distal ascending colon/hepatic flexure there was a bit of a twist of the colon that I did not feel comfortable pushing through. This had a completely benign appearance.. Preparation was good. On slow withdrawal mucosa was carefully examined. The scope was removed. The patient tolerated procedure well. Blood loss none Complications none Sedation mac Findings 1. Completely normal colonoscopy with excellent prep to the distal ascending colon Patient will have follow-up colonoscopy in 5 years.
[2023-09-17] MEDS: LACTATED RINGERS 1,000 ML 100 ML IV (08:32)
[2023-09-17 09:26] VITALS: BP 109/67; PULSE 74; RESP 19; TEMP 36.1; O2SAT 94
[2023-09-17 09:31] VITALS: BP 104/66; PULSE 74; RESP 21; O2SAT 96
[2023-09-17 09:36] VITALS: BP 102/65; PULSE 70; RESP 18; O2SAT 97
[2023-09-17 09:41] VITALS: BP 109/69; PULSE 75; RESP 12; O2SAT 97
[2023-09-17 09:42] VITALS: BP 103/69; PULSE 69; RESP 18; O2SAT 96
== END 2023-09-17 09:50 | disposition home or self-care (01) ==
PROVIDERS: PCP Internal Medicine; Referring Provider Internal Medicine Gastroenterology; Visit Provider Internal Medicine Gastroenterology
PROC: 0DJD8ZZ Inspection of Lower Intestinal Tract, Via Natural or Artificial Opening Endoscopic (ICD-10-PCS; CPT 45378; principal; 2023-09-17 09:00)
DX: Z12.11 Encounter for screening for malignant neoplasm of colon (principal); Z86.010 Personal history of colon polyps; Z80.0 Family history of malignant neoplasm of digestive organs
CPT/HCPCS: G0105; J2704

== ENCOUNTER → 2023-10-25 09:09 | Outpatient (CLI) | payer MEDICARE, SELFPAY ==
--- NOTE | 2023-10-25 09:10 | DI.MG.S_ITS ---
BILATERAL DIGITAL SCREENING MAMMOGRAM 3D/2D WITH CAD: 10/25/2023 CLINICAL: Routine screening. Family history of breast cancer. Comparison is made to exams dated: 10/23/2022 mammogram, 10/20/2021 mammogram, and 10/02/2020 mammogram - [facility]. The breasts are heterogeneously dense, which may obscure small masses (category c / 51-75% glandular tissue). Current study was also evaluated with a Computer Aided Detection (CAD) system. No significant masses, calcifications, or other findings are seen in either breast. There has been no significant interval change. IMPRESSION: NEGATIVE There is no mammographic evidence of malignancy. A 1 year screening mammogram is recommended. Based on the Tyrer Cuzick model (a risk assessment model) the patient's lifetime risk is 7.5% and her 10 year risk is 7.5%. According to the ACR, ACS, and NCCN guidelines, an annual breast MRI exam along with mammogram is recommended if the patient's lifetime risk is 20% or greater. This exam was interpreted at Station ID: [id number]. NOTE: For mammograms, a report in lay terms will be sent to the patient. Approximately 15% of breast malignancies will not be visualized mammographically. In the management of a palpable breast mass, a negative mammogram must not discourage biopsy of a clinically suspicious lesion. Electronically Signed By: Khloe wilson/lorene:10/25/2023 17:12:06 letter sent: Normal Exam ACR BI-RADS Category 1: Negative
== END ==
PROVIDERS: PCP Internal Medicine; Referring Provider Internal Medicine; Visit Provider Internal Medicine
DX: Z12.31 Encounter for screening mammogram for malignant neoplasm of breast (principal); Z80.3 Family history of malignant neoplasm of breast; R92.333 Mammographic heterogeneous density, bilateral breasts
CPT/HCPCS: 77063; 77067

== ENCOUNTER → 2024-02-18 11:35 | Outpatient (CLI) | payer MEDICARE, SELFPAY ==
[2024-02-18 13:29] LABS: Hematocrit 38.3 % (36-46); Hemoglobin 13.2 g/dL (12.0-16.0); Mean Corpuscular HGB Conc 34.5 % (30-36); Mean Corpuscular Hemoglobin 33.1 PG (26-34); Platelet Count 211 X10^3/uL (150-400); Red Blood Cell Count 3.99 X10^6/uL (4.0-5.2); Red Cell Distribution Width 12.2 % (11.6-14.8); White Blood Cell Count 6.4 X10^3/uL (4.5-11.0)
[2024-02-18 13:45] LABS: Alanine Aminotransferase 16 IU/L (<35); Albumin 4.6 g/dL (3.5-5.0); Alkaline Phosphatase 39 U/L (38-126); Aspartate Aminotransferase 26 IU/L (14-36); BUN Creatinine Ratio 24.6 (6-22); Bilirubin Total 0.5 mg/dL (0.2-1.3); Blood Urea Nitrogen 15 mg/dL (7-17); Calcium 9.6 mg/dL (8.4-10.2); Carbon Dioxide 26 mmol/L (22-32); Chloride 102 mmol/L (98-107); Cholesterol 198 mg/dL (140-199); Estimated Glomerular Filt Rate > 60 mL/min (>60); Globulin 2.3 g/dL (1.7-4.1); Glucose 85 mg/dL (80-110); HDL Cholesterol 67 mg/dL (40-60); HEMOLYSIS 19 (0-50); LDL Cholesterol Calculated 106 mg/dL (<100); Magnesium 2.1 mg/dL (1.6-2.3); Potassium 4.5 mmol/L (3.4-5.1); Sodium 136 mmol/L (137-145); Total Protein 6.9 g/dL (6.3-8.2); Triglycerides 123 mg/dL (35-150)
[2024-02-18 14:17] LABS: TSH w/ Reflex to FT4 3.01 uIU/mL (0.47-4.68)
== END ==
PROVIDERS: PCP Internal Medicine; Referring Provider Internal Medicine; Visit Provider Internal Medicine
DX: E78.2 Mixed hyperlipidemia (principal); I48.0 Paroxysmal atrial fibrillation; E83.42 Hypomagnesemia
CPT/HCPCS: 36415; 80053; 80061; 83735; 84443; 85027

== ENCOUNTER → 2024-02-26 09:58 | Outpatient (CLI) | payer MEDICARE, SELFPAY | PROVIDERS: PCP Internal Medicine; Visit Provider Physician Assistant Surgical | DX: N94.9 Unspecified condition associated with female genital organs and menstrual cycle (principal) | CPT/HCPCS: 87077; 87086; 87186; 87210 ==

== ENCOUNTER 2024-04-07 08:20 | Emergency (ER) | payer MEDICARE, SELFPAY ==
[2024-04-07] VITALS (7 sets, daily range): BP systolic 130–185; BP diastolic 90–128; PULSE 88–147; RESP 9–22; TEMP 36.4; O2SAT 93–99; BMI 18.3
--- NOTE | 2024-04-07 08:38 | DI.RAD.S_ITS ---
PROCEDURE: XR CHEST 1V INDICATIONS: PALPATATIONS, AFIB TECHNIQUE: One view of the chest was acquired. COMPARISON: None. FINDINGS: Surgical changes and devices: None. Lungs and pleura: Lungs are clear. No pleural effusions or pneumothorax. Mediastinum: Mediastinal contours appear normal. Heart size is normal. Bones and chest wall: No suspicious bony lesions. Overlying soft tissues appear unremarkable. IMPRESSION: No acute cardiopulmonary abnormality is seen. Dictated by: Abram Johnson M.D. on 04/07/2024 at 9:28 Approved by: Abram Johnson M.D. on 04/07/2024 at 9:28
--- NOTE | 2024-04-07 08:38 | EKG_ITS ---
[address] [address] Test Date: 2024-04-07 Pat Name: Nemo Oakley Department: Room: Gender: Female Sales Management Trainee: ROSALIE : 1950 Requested By: Order Number: [id number] Reading MD: Heladio Joaquin Measurements Intervals Mcdonald Rate: 153 P: MN: QRS: -15 QRSD: 82 T: 115 QT: 276 QTc: 440 Interpretive Statements Critical Test Result: High HR , Arrhythmia irregular supraventricular tachycardia of undetermined type Low voltage QRS Nonspecific ST and T wave abnormality Electronically Signed On 04-07-2024 18:38:53 PST by Heladio Joaquin
[2024-04-07 08:43] LABS: Add Manual Diff / Slide Review NO; Basophils Absolute Auto 0 /uL (0-100); Basophils Percent Auto 0.6 % (0-2); Eosinophils Absolute Auto 100 /uL (0-450); Eosinophils Percent Auto 0.7 % (2-4); Hematocrit 43.5 % (36-46); Hemoglobin 14.8 g/dL (12.0-16.0); Lymphocytes Absolute Auto 2300 /uL (1100-4500); Mean Corpuscular Hemoglobin 32.8 PG (26-34); Mean Corpuscular Volume 96.4 fL (80-100); Monocytes Absolute Auto 500 /uL (0-900); Monocytes Percent Auto 7.1 % (3-14); Neutrophils Absolute Auto 4700 /uL (1500-7000); Neutrophils Percent Auto 61.6 % (50-75); Platelet Count 199 X10^3/uL (150-400); Red Blood Cell Count 4.52 X10^6/uL (4.0-5.2); Red Cell Distribution Width 12.5 % (11.6-14.8); White Blood Cell Count 7.6 X10^3/uL (4.5-11.0)
--- NOTE | 2024-04-07 08:47 | ED_ITS ---
HPI - Arrhythmia/Palpitations General Chief Complaint: Arrhythmia/Palpitations Stated Complaint: heart palpitations, high BP Time Seen by Provider: 04/07/24 08:37 Source: patient and family Mode of arrival: Ambulatory History of Present Illness HPI narrative: Patient here with . Has had off and on palpitations for the past 3 days. Has been on Eliquis twice a day and has not missed any doses. She has history atrial fibrillation. See [facility] cardiology services. Last visit September 2023. Patient denies any chest pain or shortness of breath. Patient is on metoprolol tartrate 25 mg twice a day as needed for palpitations. It is not taken daily. She did take 1 tablet at 7:40 a.m. this morning. This episode started 730 this morning. She ate breakfast at 6:30 a.m. this morning. She does not want be cardioverted. She prefers medication Cardizem if possible for rate control. I will reach out to her cardiology team. Related Data Home Medications Medication Instructions Recorded Confirmed cholecalciferol (vitamin D3) 25 1,000 unit PO DAILY 07/17/18 02/26/24 mcg (1,000 unit) capsule (Vitamin D3) zoledronic acid 5 mg/100 mL in See Protocol 07/17/18 02/26/24 mannitol 5 %-water intravenous piggybck (Reclast) tretinoin 0.025 % topical cream 1 applic topical BEDTIME 05/25/21 02/26/24 Previous Rx's Medication Instructions Recorded apixaban 5 mg tablet (Eliquis) 5 mg PO BID #180 tabs 02/18/24 metoprolol tartrate 25 mg tablet 25 mg PO BID PRN palpitations #20 02/18/24 tabs rosuvastatin 10 mg tablet 10 mg PO DAILY #90 tabs 02/18/24 metoprolol succinate 25 mg 25 mg PO DAILY #30 tabs 04/07/24 tablet,extended release 24 hr (Toprol XL) Allergies Allergy/AdvReac Type Severity Reaction Status Date / Time No Known Drug Allergies Allergy Verified 02/26/24 09:56 Review of Systems Review of Systems Narrative: GENERAL: Negative chills, fatigue, malaise, fever, sweats. HEENT: Negative sinus pain, ear pain, sore throat RESPIRATORY: Negative dyspnea, cough CARDIOVASCULAR: Negative chest pain, positive palpitations GASTROINTESTINAL: Negative nausea, vomiting, abdominal pain : Negative dysuria, frequency, hematuria MUSCULOSKELETAL: Negative muscle or bony pain SKIN: Negative rash, skin lesions NEUROLOGIC: Negative weakness, numbness ROS Unobtainable: All systems reviewed & are unremarkable except as noted in HPI and below Patient History Medical History Chronic anticoagulation Family history of colon cancer History of colon polyps History of colon polyps History of melanoma Hypercholesterolemia Migraine with aura and without status migrainosus Mixed hyperlipidemia Osteopenia Osteopenia Paroxysmal atrial fibrillation Slow transit constipation Strain of left supraspinatus muscle or tendon Social History household members: spouse Smoking Status: Never smoker alcohol intake: current Smoking Status: Never smoker alcohol intake frequency: 0-2 drinks per day Alcohol type: wine Exam Narrative Exam Narrative: GENERAL: in no distress, not toxic not dyspneic HEAD: Normocephalic. EYES: Pupils equal round ENT: Mucous membranes moist. NECK: Trachea midline. CARDIOVASCULAR: Tachycardic with irregularly irregular rate and rhythm RESPIRATORY: Clear to auscultation. Breath sounds equal bilaterally. No wheezes, rales, or rhonchi. GASTROINTESTINAL: Abdomen soft, non-tender EXTREMITIES: No gross deformities. BACK: No flank tenderness. NEURO: AOx4. Clear speech SKIN: Warm and dry PSYCH: Not anxious, is cooperative Initial Vital Signs Initial Vital Signs: Vital Signs Pulse Rate 140 H 04/07/24 08:29 Respiratory Rate 9 L 04/07/24 08:29 Pulse Oximetry 98 04/07/24 08:29 Course Orders Ordered: ED Orders 04/07/24 08:30 Complete Blood Count AUTO DIFF Stat Comprehensive Metabolic Panel Stat Lipase Stat Magnesium Stat NT-proBNP (BNP-Adult 18+) Stat PTT Partial Thromboplastin Nomi Stat Prothrombin Time INR Stat TSH [Thyroid Stimulating Hormone] Stat Troponin & CK Cardiac Panel Stat 04/07/24 08:38 XR chest 1V Stat EKG-12 Lead Stat 04/07/24 09:49 EKG-12 Lead Stat Discontinued Medications Aspirin (Aspirin 81 Mg Chew Tab) 324 mg PO NOW ONE Stop: 04/07/24 08:39 Last Admin: 04/07/24 09:01 Dose: Not Given Documented By: RB Diltiazem HCl 125 mg/ Sodium (Chloride) 125 mls @ 5 mls/hr IV TITRATE VINNIE; Protocol Last Titration: 04/07/24 10:20 Dose: Infused Documented By: Admin: 04/07/24 09:32 Dose: 5 mg/hr, 5 mls/hr Documented By: RB Vital Signs Vital signs: Vital Signs - 8 hr 04/07/24 08:29 04/07/24 08:30 04/07/24 08:32 Temperature 97.6 F Pulse Rate 140 H 141 H 88 Respiratory Rate 9 L 12 22 Blood Pressure 185/128 H Pulse Oximetry 98 98 93 Oxygen Delivery Method Room Air 04/07/24 08:32 04/07/24 08:32 04/07/24 09:00 Temperature Pulse Rate 142 H Respiratory Rate 14 Blood Pressure 155/93 H 130/93 H Pulse Oximetry 99 Oxygen Delivery Method 04/07/24 09:00 04/07/24 09:10 04/07/24 09:10 Temperature Pulse Rate 143 H 147 H Respiratory Rate 17 Blood Pressure 141/90 H Pulse Oximetry 98 Oxygen Delivery Method 04/07/24 09:30 04/07/24 09:30 04/07/24 09:32 Temperature Pulse Rate 141 H 141 H Respiratory Rate 12 Blood Pressure 133/94 H 141/90 H Pulse Oximetry 97 Oxygen Delivery Method MDM - Arrhythmia/Palpitations Lab Data 04/07/24 08:30 04/07/24 08:30 Labs: Lab Results 04/07/24 Range/Units 08:30 WBC 7.6 (4.5-11.0) X10^3/uL RBC 4.52 (4.0-5.2) X10^6/uL Hgb 14.8 (12.0-16.0) g/dL Hct 43.5 (36-46) % MCV 96.4 (80-100) fL MCH 32.8 (26-34) PG MCHC 34.0 (30-36) % RDW 12.5 (11.6-14.8) % Plt Count 199 (150-400) X10^3/uL Neut % (Auto) 61.6 (50-75) % Lymph % (Auto) 30.0 (25-40) % [place] % (Auto) 7.1 (3-14) % Eos % (Auto) 0.7 L (2-4) % Baso % (Auto) 0.6 (0-2) % Neut # (Auto) 4700 (9017-7750) /uL Lymph # (Auto) 2300 (3105-2360) /uL [place] # (Auto) 500 (0-900) /uL Eos # (Auto) 100 (0-450) /uL Baso # (Auto) 0 (0-100) /uL PT 15.6 H (9.4-12.5) SECONDS INR 1.4 H (0.9-1.3) APTT 43 H (25.1-36.5) SECONDS Sodium 138 (137-145) mmol/L Potassium 3.9 (3.4-5.1) mmol/L Chloride 104 (98-107) mmol/L Carbon Dioxide 23 (22-32) mmol/L BUN 12 (7-17) mg/dL Creatinine 0.62 (0.52-1.04) mg/dL Estimated GFR > 60 (>60) mL/min BUN/Creatinine Ratio 19.4 (6-22) Glucose 109 (80-110) mg/dL Calcium 9.5 (8.4-10.2) mg/dL Magnesium 2.0 (1.6-2.3) mg/dL Total Bilirubin 0.8 (0.2-1.3) mg/dL AST 33 (14-36) IU/L ALT 26 (<35) IU/L Alkaline Phosphatase 50 (38-126) U/L Total Creatine Kinase 69 (30-135) U/L Troponin I < 0.012 (0.01-0.034) ng/mL NT-Pro-B Natriuret Pep 710 H (<450) pg/mL Total Protein 8.2 (6.3-8.2) g/dL Albumin 4.9 (3.5-5.0) g/dL Globulin 3.3 (1.7-4.1) g/dL Albumin/Globulin Ratio 1.5 (1.0-2.8) Lipase 86 (23-300) U/L TSH 3.78 (0.47-4.68) uIU/mL Imaging Data Chest x-ray: Radiologist's Impresson: [address] [address] XRay Report Signed Patient: Nemo Oakley MR#: [id number] : 1950 Acct:[id number] Age/Sex: 73 / F Date of Service: 04/07/24 Loc: ED Accession Number: [id number] Procedure: XR chest 1V Ordering Provider: Jomar Lee MD PROCEDURE: XR CHEST 1V INDICATIONS: PALPATATIONS, AFIB TECHNIQUE: One view of the chest was acquired. COMPARISON: None. FINDINGS: Surgical changes and devices: None. Lungs and pleura: Lungs are clear. No pleural effusions or pneumothorax. Mediastinum: Mediastinal contours appear normal. Heart size is normal. Bones and chest wall: No suspicious bony lesions. Overlying soft tissues appear unremarkable. IMPRESSION: No acute cardiopulmonary abnormality is seen. Dictated by: Abram Johnson M.D. on 04/07/2024 at 9:28 Approved by: Abram Johnson M.D. on 04/07/2024 at 9:28 [facility] Narrative Medical decision making narrative: Patient here with . Has had off and on palpitations for the past 3 days. Has been on Eliquis twice a day and has not missed any doses. She has history atrial fibrillation. See [facility] cardiology services. Last visit September 2023. Patient denies any chest pain or shortness of breath. Patient is on metoprolol tartrate 25 mg twice a day as needed for palpitations. It is not taken daily. She did take 1 tablet at 7:40 a.m. this morning. This episode started 730 this morning. She ate breakfast at 6:30 a.m. this morning. She does not want be cardioverted. She prefers medication Cardizem if possible for rate control. I will reach out to her cardiology team. After history and exam, CBC CMP TSH troponin PT INR chest x-ray, cardioversion versus Cardizem drip. [facility] Medical records reviewed: September 2023 office visit [facility] cardiology Differential considered: Includes but not limited to AFib a flutter SVT Lab Test results independently reviewed as above. Pertinent findings: Hemoglobin 14.8 WBC 7.6 INR 1.4 sodium 138 potassium 3.9 BUN 12 creatinine 0.62 magnesium 2.0 troponin less than 0.012 BNP 710 TSH 3.78 Independently reviewed EKG atrial fibrillation rate 153, repeat EKG with Cardizem 9:53 a.m.. Patient has converted to normal sinus rhythm rate 71 Imaging studies independently reviewed: Chest x-ray no acute finding Consultations: 8:[address] Lang, cardiology [facility] cardiology, agrees, patient can start Cardizem drip. Patient does not want to be cardioverted. If patient converts to sinus rhythm then discharge patient home and patient is take her metoprolol tartrate 25 mg twice a day and continue Eliquis. Follow up in the office. Treatments: Cardizem drip Re-evaluations: 10:00 a.m.. Patient converted to sinus rhythm on Cardizem. Was on Cardizem a short duration. Patient feeling much better. Rate 71 in sinus rhythm. Blood pressure stable. Reviewed with patient treatment plan and my discussion with cardiology services. 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 She prefers the metoprolol succinate extended release mg once a day because it would be easier for her to remember. Return precautions reviewed. They desire discharge home. Discussion: Appropriate for discharge home. Cardiology service was contacted. Patient converted on Cardizem. She is anticoagulated and has not missed any doses of Eliquis. She desires discharge home. Return precautions reviewed. Diagnosis: Atrial fibrillation Critical Care Time Critical Care Time Attestation: Critical Care Time 35 minutes: Critical care time is separate from other billable procedures. This critical care time includes consultation with family and other consulting doctors, review of records, and interpretation of data from labs, EKGs, imaging, etc. Discharge Plan Departure Patient Disposition: Home Clinical Impression: Atrial fibrillation Qualifiers: Atrial fibrillation type: paroxysmal Qualified Code(s): I48.0 - Paroxysmal atrial fibrillation Instructions: DI for Atrial Fibrillation Activity Restrictions/Additional Instructions: I am glad you are feeling better. The medication given here, Cardizem, help to convert to sinus rhythm. Please continue your Eliquis. Prescription for metoprolol succinate 25 mg once daily has been sent to your pharmacy to continue tomorrow. Pick it up today. Please contact your family doctor and cardiology office today for follow up appointment. Return if worse if any questions or concerns Prescriptions: New metoprolol succinate [Toprol XL] 25 mg tablet extended release 24 hr 25 mg PO DAILY Qty: 30 0RF No Action metoprolol tartrate 25 mg tablet 25 mg PO BID PRN (Reason: palpitations) Qty: 20 0RF rosuvastatin 10 mg tablet 10 mg PO DAILY Qty: 90 3RF Eliquis 5 mg tablet 5 mg PO BID Qty: 180 3RF tretinoin 0.025 % cream 1 applic topical BEDTIME Patient Comments: APPLY A PEA SIZED AMOUNT NIGHTLY AT BEDTIME cholecalciferol (vitamin D3) [Vitamin D3] 1,000 unit Capsule 1,000 unit PO DAILY zoledronic [id number] [Reclast] 5 mg/100 mL Piggyback See Protocol Protocol: TITRATE PER PROTOCOL Patient Comments: Approximate date of infusion Rx Instructions: every 18 months Referrals: Armen Watkins MD [Primary Care Provider] - Stand Alone Forms: Patient Portal/API/Survey
[2024-04-07 08:48] LABS: INR 1.4 (0.9-1.3); Prothrombin Time 15.6 SECONDS (9.4-12.5)
[2024-04-07 08:51] LABS: PTT Partial Thromboplastin Tim 43 SECONDS (25.1-36.5)
[2024-04-07 08:52] LABS: Alanine Aminotransferase 26 IU/L (<35); Albumin 4.9 g/dL (3.5-5.0); Albumin Globulin Ratio 1.5 (1.0-2.8); Alkaline Phosphatase 50 U/L (38-126); Aspartate Aminotransferase 33 IU/L (14-36); BUN Creatinine Ratio 19.4 (6-22); Bilirubin Total 0.8 mg/dL (0.2-1.3); Blood Urea Nitrogen 12 mg/dL (7-17); Calcium 9.5 mg/dL (8.4-10.2); Carbon Dioxide 23 mmol/L (22-32); Chloride 104 mmol/L (98-107); Creatine Kinase 69 U/L (30-135); Estimated Glomerular Filt Rate > 60 mL/min (>60); Globulin 3.3 g/dL (1.7-4.1); Glucose 109 mg/dL (80-110); HEMOLYSIS < 15 (0-50); Lipase 86 U/L (23-300); Potassium 3.9 mmol/L (3.4-5.1); Sodium 138 mmol/L (137-145); Total Protein 8.2 g/dL (6.3-8.2)
[2024-04-07 09:04] LABS: NT-proBNP (BNP-Adult 18+) 710 pg/mL (<450); Troponin I < 0.012 ng/mL (0.01-0.034)
--- NOTE | 2024-04-07 09:19 | PC.NURSE ---
This RN called and requested ordered diltiazem drip from pharmacist at 09:11am.
[2024-04-07] MEDS: dilTIAZem 125 MG in SODIUM CHLORIDE 0.9% 100 ML IV (09:32)
[2024-04-07 09:35] LABS: Thyroid Stimulating Hormone 3.78 uIU/mL (0.47-4.68)
--- NOTE | 2024-04-07 09:53 | EKG_ITS ---
[address] [address] Test Date: 2024-04-07 Pat Name: Nemo Oakley Department: Room: Gender: Female [employer]: BHAVIK : 1950 Requested By: Order Number: [id number] Reading MD: Heladio Joaquin Measurements Intervals [place] Rate: 71 P: 60 KS: 174 QRS: -33 QRSD: 76 T: 45 QT: 394 QTc: 428 Interpretive Statements Normal sinus rhythm Left axis deviation Electronically Signed On 04-07-2024 18:38:55 PST by Heladio Joaquin
== END 2024-04-07 10:24 | disposition home or self-care (01) ==
PROVIDERS: Emergency Provider Emergency Medicine; PCP Internal Medicine
DX: I48.0 Paroxysmal atrial fibrillation (principal); Z79.01 Long term (current) use of anticoagulants
CPT/HCPCS: 36415; 71045; 80053; 82550; 83690; 83735; 83880; 84443; 84484; 85025; 85610; 85730; 93005; 96365; 99284; 99291

== ENCOUNTER → 2024-04-23 08:02 | Outpatient (CLI) | payer MEDICARE, SELFPAY ==
--- NOTE | 2024-04-23 08:03 | DI.ECHO.S_ITS ---
[facility] : : [address] : : [place] : : [id number] : : Phone: [phone] Echocardiogram Report + + :Name: CARROL VÁSQUEZ Study Date: 04/23/2024 Height: 65 in : :[facility] ReadingLocation: Weight: 112 lb : : Gender: Female BSA: 1.5 m2 : :: 1950 Age: 73 yrs BP: 122/75 mmHg: :Reason For Study: ATRIAL FIBRILLATION : :Ordering Physician: VALERIE, : :KIRSTIN Performed By: Nayan Dick : :Referring: KIRSTIN PADILLA : + + Interpretation Summary 1) Normal left ventricular thickness, size, wall motion, and systolic function (EF 60-65%). 2) Normal right ventricular size and function. 3) There is mild to moderate mitral regurgitation. 4) Compared to the Echo done 03/09/2020, mitral regurgitation has increased from mild to mild-moderate on this study. Procedure: A two-dimensional transthoracic echocardiogram with color flow and Doppler was performed. The study quality was technically good. Comparison is made with the echocardiogram of 03/09/2020. The patient was in normal sinus rhythm during the exam. Left Ventricle: The left ventricle is normal in size. There is normal left ventricular wall thickness. There is no ventricular septal defect visualized. The ejection fraction is estimated to be 60-65%. There are no focal wall motion abnormalities. Diastolic parameters suggest probable normal left ventricular diastolic function and normal filling pressures. Right Ventricle: The right ventricle is normal in size and function. Atria: The left atrial size is normal. The right atrium is mildly dilated. There is no Doppler evidence for an atrial septal defect. Mitral Valve: There is mild mitral annular calcification. The mitral valve leaflets appear mildly thickened, but open well. There is mild to moderate mitral regurgitation. Aortic Valve: The aortic valve is trileaflet. The aortic valve opens well. There is no aortic valve stenosis. There is trace aortic regurgitation. Tricuspid Valve: The tricuspid valve leaflets are thin and pliable. There is a trace or physiologic amount of tricuspid regurgitation. Pulmonic Valve: The pulmonic valve leaflets are thin and pliable; valve motion is normal. There is no pulmonic valvular regurgitation. Great Vessels: The aortic root is normal size. The dimensions of the ascending aorta are normal. The pulmonary artery is normal size. The IVC is of normal diameter and collapses greater than 50% with a sniff. This suggests a low right atrial pressure of 3 mm Hg. Pericardium/ Pleura There is no pericardial effusion. There is no pleural effusion. MMode/2D Measurements & Calculations LVIDd: 4.5 cm LVOT diam: 2.0 cm LVIDs: 3.1 cm Ao root diam: 3.0 cm FS: 30.6 % asc Aorta Diam: 3.2 cm EPSS: 0.62 cm IVSd: 0.67 cm LVPWd: 0.68 cm LV dean. diameter/BSA (cm/m^2): 2.9 LV sys. diameter/BSA (cm/m^2): 2.0 LA A2 area: 13.6 cm2 RA long axis: 4.3 cm LA A4 area: 12.5 cm2 RA area: 14.4 cm2 LA length (vol): 4.4 cm RA vol: 40.8 ml LA vol: 33.1 ml RA : 26.4 ml/m2 LA vol index: 21.4 ml/m2 IVC diam: 1.5 cm RVD1 (basal): 2.6 cm TAPSE: 2.3 cm Doppler Measurements & Calculations Ao V2 max: 120.9 cm/sec LVOT Max Francis: 82.4 cm/sec Ao V2 mean: 86.3 cm/sec LV V1 max P.7 mmHg Ao max P.8 mmHg LV V1 VTI: 21.4 cm Ao mean P.3 mmHg MARGARETTE(I,D): 2.1 cm2 Ao V2 VTI: 30.9 cm MARGARETTE(V,D): 2.1 cm2 sev ratio: 0.69 MARGARETTE indexed to BSA (cm^2/m^2): 1.4 MV E max francis: 89.2 cm/sec TR max francis: 243.2 cm/sec MV A max francis: 72.3 cm/sec TR max P.7 mmHg MV E/A: 1.2 PA V2 max: 62.2 cm/sec Med Peak E' Francis: 6.8 cm/sec PA V2 mean: 44.1 cm/sec E/E' med: 13.1 PA mean P.87 mmHg Lat Peak E' Francis: 8.8 cm/sec PA pr(Accel): 29.3 mmHg E/E' lat: 10.2 E/e' average: 11.6 MV dec time: 0.20 sec SV(LVOT): 66.4 ml Reading Physician:12:42 PM
== END ==
PROVIDERS: PCP Internal Medicine; Referring Provider Internal Medicine; Visit Provider Internal Medicine
DX: I48.0 Paroxysmal atrial fibrillation (principal); I34.0 Nonrheumatic mitral (valve) insufficiency
CPT/HCPCS: 93306

== ENCOUNTER → 2024-07-22 10:08 | Outpatient (CLI) | payer MEDICARE, SELFPAY ==
[2024-07-22 12:18] LABS: Vitamin B12 Reflex MMA if <400 219 pg/mL (239-931)
== END ==
PROVIDERS: PCP Internal Medicine; Referring Provider Internal Medicine; Visit Provider Internal Medicine
DX: E53.8 Deficiency of other specified B group vitamins (principal); R77.9 Abnormality of plasma protein, unspecified
CPT/HCPCS: 36415; 82607; 83921; 84155; 84165